=== PATIENT | male | born 1995 | race American Indian/Alaskan Native ===

== ENCOUNTER 2017-06-25 12:10 | Emergency (ER) | payer MEDICAID, OTHER ==
--- NOTE | 2017-06-25 13:14 | C.PDOC ---
History Of Present Illness Pt is a 22 yr old male presents to the ER for evaluation of left hand pain and swelling. Patient states he punched a wall last night around 8:30 and complaints of left thumb pain. Pt did not take any medications for his sxs. Denies shoulder pain, arm pain, weakness or numbness. Pt w/ no additional complaints at this time. PMD: Dr. Chasity Hodge . Time Seen by Provider: 06/25/17 12:54 Chief Complaint (Nursing): Finger,Hand,&Wrist History Per: Patient History/Exam Limitations: no limitations Onset/Duration Of Symptoms: Sudden Onset (Last night) Past Medical History Reviewed: Historical Data, Nursing Documentation, Vital Signs Vital Signs: Last Vital Signs Temp 98.2 F 06/25/17 13:26 Pulse 90 06/25/17 13:26 Resp 16 06/25/17 13:26 BP 110/70 06/25/17 13:26 Pulse Ox 100 06/25/17 13:26 - Medical History PMH: No Chronic Diseases Family History: States: No Known Family Hx - Social History Hx Tobacco Use: No Hx Alcohol Use: Yes Hx Substance Use: No - Immunization History Hx Tetanus Toxoid Vaccination: Yes Hx Influenza Vaccination: Yes Hx Pneumococcal Vaccination: Yes Review Of Systems Except As Marked, All Systems Reviewed And Found Negative. Musculoskeletal: Positive for: Hand Pain (Left hand). Negative for: Shoulder Pain, Arm Pain Neurological: Negative for: Weakness, Numbness Physical Exam - Physical Exam Appears: Well, Non-toxic, No Acute Distress Skin: Warm, Dry Head: Atraumatic, Normacephalic Eye(s): bilateral: Normal Inspection, EOMI Nose: Normal Chest: Symmetrical, No Tenderness Cardiovascular: Rhythm Regular, No Murmur Respiratory: Normal Breath Sounds, No Rales, No Rhonchi, No Stridor, No Wheezing Extremity: Normal ROM, Capillary Refill (<2 secs), Other ((+) Left Hand - Tenderness to the proximal left thumb with mild swelling.) Neurological/Psych: Oriented x3, Normal Speech, Normal Motor ED Course And Treatment O2 Sat by Pulse Oximetry: 96 (RA) Pulse Ox Interpretation: Normal - Other Rad X-Ray - Left Hand X-Ray: Interpreted by Me, Viewed By Me Interpretation: (-) Fractures. Dislocations. X-Ray - Left Thumb X-Ray: Interpreted by Me, Viewed By Me Interpretation: (-) Fractures. Dislocations. Medical Decision Making Medical Decision Making: Initial impression: Thumb contusion vs. fracture Intial plan: xrays and motrin Progress note: No fx on xrays Procedure note: Finger splint placed. Pt feels better. Will d/c home. Disposition Counseled Patient/Family Regarding: Studies Performed, Diagnosis, Need For Followup, Rx Given - Disposition Referrals: Neville Raymundo MD [Staff Provider] - Disposition: HOME/ ROUTINE Disposition Time: 13:19 Condition: STABLE Additional Instructions: Mr. Mina, thank you for letting us take care of you today. Return to the ER if your symptoms worsen, or if any problems. Take the medication listed below as prescribed. Follow up with our hand surgeon Dr. Neville Raymundo. Call the phone number listed below to make an appointment. Prescriptions: Ibuprofen [Motrin] 1 tab PO TID PRN #30 tab PRN Reason: Pain, Moderate (4-7) Instructions: Contusion in Adults (ED), Hand Sprain (ED) Forms: [employer] (Swedish) Print Language: GHANAIAN - POA Present On Arrival: None - Clinical Impression Clinical Impression: Thumb contusion - Scribe Statement The provider has reviewed the documentation as recorded by the Scribe Irma Moy Provider Attestation: All medical record entries made by the Scribe were at my direction and personally dictated by me. I have reviewed the chart and agree that the record accurately reflects my personal performance of the history, physical exam, medical decision making, and the department course for this patient. I have also personally directed, reviewed, and agree with the discharge instructions and disposition.
--- NOTE | 2017-06-25 13:24 | RAD ---
Left hand three views History: Punched wall. Comparison: None available. Findings: No evidence of acute displaced fracture or dislocation. Negative ulnar variance. Impression: Negative acute. If pain persists, consider MRI.
--- NOTE | 2017-06-25 13:26 | RAD ---
Left thumb two views History: Pain. Comparison: None available. Findings: No evidence for acute displaced fracture or dislocation. Impression: Negative acute. If pain persists, consider MRI.
[2017-06-25 13:27] VITALS: BP 110/70; PULSE 90; RESP 16; TEMP 98.2
[2017-06-26 17:14] VITALS: O2SAT 96
== END 2017-06-25 13:26 | disposition home or self-care (01) ==
LOC: C.ER 12:10
DX: S60.012A Contusion of left thumb without damage to nail, initial encounter (principal); W22.8XXA Striking against or struck by other objects, initial encounter